=== PATIENT | female | born 1950 | race Caucasian/White ===

== ENCOUNTER 2019-01-19 10:17 | Day surgery (SDC) | payer OTHER ==
[2019-01-19] MEDS ORDERED: PROPOFOL 20 ML (11:56)
== END 2019-01-19 12:58 | disposition home or self-care (01) ==
LOC: GIL 10:17
DX: Z12.11 Encounter for screening for malignant neoplasm of colon (principal); K64.8 Other hemorrhoids
CPT/HCPCS: 45378